=== PATIENT | male | born 1970 | race Caucasian/White ===

== ENCOUNTER 2018-11-22 15:30 | Emergency (ER) | payer OTHER ==
[2018-11-22] MEDS ORDERED: Ondansetron 4 MG/2 ML SDV IVPUSH ONE (16:13)
[2018-11-22] MEDS ORDERED: Sodium Chloride 0.9% 1,000 ML IV STA (16:13)
[2018-11-22] MEDS ORDERED: HYDROmorphone 1 MG/ML Syringe IVPUSH ONE (16:15)
[2018-11-22] MEDS ORDERED: Iopamidol 612 MG/ML 100 ML Bottle IVPUSH ONE (16:22)
[2018-11-22] MEDS ORDERED: Diatrizoate Meglumine/Diatrizoate Sodium 37% 120 ML Bottle PO ONE (16:22)
[2018-11-22] MEDS: Sodium Chloride 0.9% 10 ML Syringe FLUSH PRN ×2 (16:30→17:40)
--- NOTE | 2018-11-22 17:43 | EDM.PDOC ---
ED HPI GENERAL MEDICAL PROBLEM - General Chief Complaint: Abdominal Pain Stated Complaint: LEFT SIDE ABD PAIN Time Seen by Provider: 11/22/18 15:45 Source of Information: Reports: Patient History Limitations: Reports: No Limitations - History of Present Illness INITIAL COMMENTS - FREE TEXT/NARRATIVE: The patient presents with left sided abdominal pain that radiates to his back on the left side. He has a history of kidney stones but this feels different. He was on the internet and he wondered if this could be diverticulitis. He had hemorrhoids before and had blood in his stool but nothing today. He has no fever, chills, cough, nausea, vomiting, diarrhea, dysuria or hematuria. He had a colonoscopy 5 years ago and they could not get very far. This all started on Wednesday. Onset: Gradual Duration: Day(s): (3) Location: Reports: Abdomen Quality: Reports: Sharp Severity: Moderate Improves with: Reports: None Worsens with: Reports: None Associated Symptoms: Denies: Confusion, Chest Pain, Cough, Diaphoresis, Fever/ Chills, Headaches, Shortness of Breath Left Abdomen Pain Score (Numeric/FACES): 9 - Related Data Allergies Allergy/AdvReac Type Severity Reaction Status Date / Time Penicillins Allergy Rash Verified 11/22/18 15:53 Home Meds: Home Meds Doxepin [SINEquan] 10 mg PO ASDIRECTED 11/22/18 [History] Folic Acid 1 mg PO DAILY 11/22/18 [History] Hydrocodone/Acetaminophen [Hydrocodon-Acetaminophen 5-325] 1 - 2 each PO Q6HR PRN #12 tablet 11/22/18 [Rx] Meloxicam [Mobic] 15 mg PO ASDIRECTED 11/22/18 [History] Omeprazole 20 mg PO BID 11/22/18 [History] Ondansetron [Zofran ODT] 4 mg PO ASDIRECTED PRN 11/22/18 [History] Ustekinumab [Stelara] 1 dose SUBCUT ASDIRECTED 11/22/18 [History] Past Medical History Cardiovascular History: Reports: High Cholesterol, Hypertension Genitourinary History: Reports: Renal Calculus Musculoskeletal History: Reports: Other (See Below) Other Musculoskeletal History: PSORIATE ARTHRITIS Neurological History: Reports: Migraines Hematologic History: Reports: Anemia, Iron Deficiency Dermatologic History: Reports: Psoriasis - Past Surgical History GI Surgical History: Reports: Colonoscopy, EGD Other Neurological Surgeries/Procedures: cervical spine stenosis, Social & Family History - Tobacco Use Smoking Status *Q: Current Every Day Smoker Years of Tobacco use: 30 Packs/Tins Daily: 0.2 - Caffeine Use Caffeine Use: Reports: None - Recreational Drug Use Recreational Drug Use: No ED ROS GENERAL - Review of Systems Review Of Systems: See Below Constitutional: Reports: No Symptoms HEENT: Reports: No Symptoms Respiratory: Reports: No Symptoms Cardiovascular: Reports: No Symptoms Endocrine: Reports: No Symptoms GI/Abdominal: Reports: Abdominal Pain. Denies: Diarrhea, Nausea, Vomiting : Reports: No Symptoms Musculoskeletal: Reports: No Symptoms Skin: Reports: No Symptoms ED EXAM, GI/ABD - Physical Exam Exam: See Below Exam Limited By: No Limitations General Appearance: Alert, No Apparent Distress Ears: Normal External Exam Nose: Normal Inspection Head: Atraumatic, Normocephalic Neck: Normal Inspection Respiratory/Chest: No Respiratory Distress, Lungs Clear, Normal Breath Sounds Cardiovascular: Regular Rate, Rhythm, No Edema, No Murmur GI/Abdominal Exam: Soft, No Organomegaly, No Mass, Tender (Mild to moderate tenderness to the left lateral abdomen) Course - Vital Signs Last Recorded V/S: Last Vital Signs Temp 98 F 11/22/18 15:41 Pulse 91 11/22/18 15:41 Resp 13 11/22/18 15:41 BP 117/102 H 11/22/18 15:41 Pulse Ox 100 11/22/18 15:41 - Orders/Labs/Meds Orders: Active Orders 24 hr Category Date Time Status Peripheral IV Care [RC] . DIRECTED Care 11/22/18 16:14 Active Sodium Chloride 0.9% [Saline Flush] Med 11/22/18 16:13 Active 10 ml FLUSH ASDIRECTED PRN ED Antiemetic Medication Reflex [OM.PC] Stat Oth 11/22/18 16:14 Ordered Peripheral IV Insertion Adult [OM.PC] Stat Oth 11/22/18 16:13 Ordered Medication Orders Sodium Chloride (Saline Flush) 10 ml FLUSH ASDIRECTED PRN PRN Reason: Keep Vein Open Last Admin: 11/22/18 17:40 Dose: 10 ml Admin: 11/22/18 16:30 Dose: 10 ml Labs: Laboratory Tests 01/11/22/18 11/22/18 Range/Units 16:25 16:29 16:29 WBC 6.76 (4.23-9.07) K/mm3 RBC 5.35 (4.63-6.08) M/mm3 Hgb 10.9 L (13.7-17.5) gm/L Hct 37.9 L (40.1-51.0) % MCV 70.8 L (79.0-92.2) fl MCH 20.4 L (25.7-32.2) pg MCHC 28.8 L (32.2-35.5) g/dl RDW Std Deviation 49.9 H (35.1-43.9) fL Plt Count 292 (163-337) K/mm3 MPV 9.0 L (9.4-12.3) fl Neut % (Auto) 65.2 (34.0-67.9) % Lymph % (Auto) 19.7 L (21.8-53.1) % [place] % (Auto) 13.6 H (5.3-12.2) % Eos % (Auto) 1.0 (0.8-7.0) Baso % (Auto) 0.4 (0.1-1.2) % Neut # (Auto) 4.40 (1.78-5.38) K/mm3 Lymph # (Auto) 1.33 (1.32-3.57) K/mm3 [place] # (Auto) 0.92 H (0.30-0.82) K/mm3 Eos # (Auto) 0.07 (0.04-0.54) K/mm3 Baso # (Auto) 0.03 (0.01-0.08) K/mm3 Manual Slide Review Abnormal smear Sodium 141 (136-145) mEq/L Potassium 3.6 (3.5-5.1) mEq/L Chloride 104 (98-107) mEq/L Carbon Dioxide 26 (21-32) mEq/L Anion Gap 14.6 (5-15) BUN 15 (7-18) mg/dL Creatinine 0.7 (0.7-1.3) mg/dL Est Cr Clr Drug Dosing 134.70 mL/min Estimated GFR (MDRD) > 60 (>60) mL/min BUN/Creatinine Ratio 21.4 H (14-18) Glucose 97 (74-106) mg/dL Calcium 9.6 (8.5-10.1) mg/dL Total Bilirubin 0.7 (0.2-1.0) mg/dL AST 102 H (15-37) U/L ALT 82 H (16-63) U/L Alkaline Phosphatase 62 (46-116) U/L Total Protein 8.1 (6.4-8.2) g/dl Albumin 4.2 (3.4-5.0) g/dl Globulin 3.9 gm/dL Albumin/Globulin Ratio 1.1 (1-2) Lipase 292 (73-393) U/L Urine Color Yellow (Yellow) Urine Appearance Clear (Clear) Urine pH 6.5 (5.0-8.0) Ur Specific [place] 1.010 (1.005-1.030) Urine Protein Negative (Negative) Urine Glucose (UA) Negative (Negative) Urine Ketones Negative (Negative) Urine Occult Blood Negative (Negative) Urine Nitrite Negative (Negative) Urine Bilirubin Negative (Negative) Urine Urobilinogen 1.0 (0.2-1.0) Ur Leukocyte Esterase 1+ H (Negative) Urine RBC Not seen (0-5) /hpf Urine WBC 0-5 (0-5) /hpf Ur Epithelial Cells 0-5 (0-5) /hpf Urine Bacteria Not seen (FEW) /hpf Urine Mucus Not seen (FEW) /hpf Meds: Medications Generic Name Dose Route Start Last Admin Trade Name Rhett PRN Reason Stop Dose Admin Sodium Chloride 10 ml 11/22/18 16:13 11/22/18 17:40 Saline Flush FLUSH 10 ml ASDIRECTED PRN Administration Keep Vein Open Discontinued Medications Generic Name Dose Route Start Last Admin Trade Name Rhett PRN Reason Stop Dose Admin Diatrizoate Meglum/Diatrizoate Sod 60 ml 11/22/18 16:22 11/22/18 17:40 Gastrografin 37% PO 11/22/18 16:23 60 ml ONETIME ONE Administration Hydromorphone HCl 0.5 mg 11/22/18 16:15 11/22/18 16:31 Dilaudid IVPUSH 11/22/18 16:16 0.5 mg ONETIME ONE Administration Sodium Chloride 1,000 mls @ 1,000 mls/hr 11/22/18 16:13 11/22/18 16:29 Normal Saline IV 11/22/18 17:12 1,000 mls/hr .BOLUS STA Administration Iopamidol 100 ml 11/22/18 16:22 11/22/18 17:40 Isovue-300 (61%) IVPUSH 11/22/18 16:23 100 ml ONETIME ONE Administration Ondansetron HCl 4 mg 11/22/18 16:13 11/22/18 16:29 Zofran IVPUSH 11/22/18 16:14 4 mg ONETIME ONE Administration - Re-Assessments/Exams Free Text/Narrative Re-Assessment/Exam: 11/22/18 18:48 I ordered an IV NS 1L bolus, zofran 4mg IV, dilaudid 0.5mg IV, labs, UA and a CT of his abdomen and pelvis. His WBC is normal. His Hgb is a little low at 10.9. His AST is elevated at 102. His ALT is elevated at 82. His lipase is normal. His UA shows no UTI. His CT shows findings within both kidneys which are felt to nonacute. Fatty infiltration within the liver. Other normal findings as noted above. No acute intraabdominal abnormality is seen. He feels better. At this time, I am not sure what is causing his pain. This does not look like shingles. He does lift heavy stuff at work. It could be muscle pain. I will get him something for pain and take a stool softner. Departure - Departure Time of Disposition: 18:55 Disposition: Home, Self-Care 01 Condition: Good Clinical Impression: Abdominal pain Qualifiers: Abdominal location: left lower quadrant Qualified Code(s): R10.32 - Left lower quadrant pain Back pain Qualifiers: Back pain location: low back pain Chronicity: acute Back pain laterality: left Sciatica presence: without sciatica Qualified Code(s): M54.5 - Low back pain - Discharge Information *PRESCRIPTION DRUG MONITORING PROGRAM REVIEWED*: No *COPY OF PRESCRIPTION DRUG MONITORING REPORT IN PATIENT EDNA: No Prescriptions: Hydrocodone/Acetaminophen [Hydrocodon-Acetaminophen 5-325] 1 - 2 each PO Q6HR PRN #12 tablet PRN Reason: Pain Referrals: Sloane Joseph MD [Primary Care Provider] - 1 Week Forms: ED Department Discharge Additional Instructions: Take the hydrocodone as needed. Take a stool softener daily. Follow up with Dr Joseph. Please return if you are worse. - My Orders Last 24 Hours: My Active Orders 11/22/18 16:13 Sodium Chloride 0.9% [Saline Flush] 10 ml FLUSH ASDIRECTED PRN Peripheral IV Insertion Adult [OM.PC] Stat 11/22/18 16:14 Peripheral IV Care [RC] . DIRECTED ED Antiemetic Medication Reflex [OM.PC] Stat - Assessment/Plan Last 24 Hours: My Active Orders 11/22/18 16:13 Sodium Chloride 0.9% [Saline Flush] 10 ml FLUSH ASDIRECTED PRN Peripheral IV Insertion Adult [OM.PC] Stat 11/22/18 16:14 Peripheral IV Care [RC] . DIRECTED ED Antiemetic Medication Reflex [OM.PC] Stat
--- NOTE | 2018-11-22 18:07 | CT ---
CT abdomen and pelvis Technique: Multiple axial sections were obtained from slightly below the top of the liver inferiorly through the pubic symphysis. Intravenous and oral contrast was utilized. Delayed images were also obtained through the bladder. Comparison: No previous abdominal imaging is available. Findings: Small portion of the visualized lung bases are clear. Liver shows decreased density compatible with fatty infiltration. No focal abnormality is appreciated within the liver. Gallbladder shows no calcified gallstones. Pancreas appears within normal limits. Spleen size is normal. Adrenal glands show no nodule. Kidneys show symmetric contrast enhancement. Nonobstructing calculus is seen within the lower left kidney measuring 1.2 cm. There may be a small second calcification adjacent to this larger one. Cyst identified within the mid to upper left kidney measuring 1.5 cm. Second small cyst is noted inferiorly within the left kidney measuring 1.5 cm. Third small cyst is noted within the mid left kidney measuring 9 mm. Nonobstructing stone is noted within the mid to lower right kidney measuring about 8 mm. Focal area of scarring is noted within the mid to upper right kidney which contains an adjacent calcification which is felt to be dystrophic. Kidneys are otherwise unremarkable. No ureteral dilatation is seen. Aorta shows no aneurysm. No retroperitoneal adenopathy is seen. Appendix is seen and is normal. No mesenteric abnormalities are seen. No pelvic mass or adenopathy is seen. No inflammatory change is seen. Delayed images shows contrast within the distal ureter and within the bladder. Bone window settings were reviewed which shows no acute osseous abnormality. Impression: 1. Findings within both kidneys which are felt to be nonacute. 2. Fatty infiltration within the liver. 3. Other normal findings as noted above. No acute intraabdominal abnormality is seen. Diagnostic code #2
== END 2018-11-22 19:00 | disposition home or self-care (01) ==
LOC: JD.ED 15:30
DX: R10.32 Left lower quadrant pain (principal); M54.5 Low back pain; I10 Essential (primary) hypertension; F17.210 Nicotine dependence, cigarettes, uncomplicated; Z88.0 Allergy status to penicillin
CPT/HCPCS: 36415; 74177; 80053; 81001; 83690; 85025; 96361; 96374; 96375; 99284; J1170; J2405; J7040; Q9963; Q9967